=== PATIENT | male | born 1955 | race Caucasian/White ===

== ENCOUNTER 2018-04-18 12:45 | Emergency (ER) | payer OTHER ==
--- OUTSIDE RECORDS SUMMARY | 2018-04-18 13:37 | XMS REPORT ---
:1955 [facility] Address [address] [place] [address] [address] [place] [address] Care Team Providers Name Role Phone Unavailable Unavailable Unavailable Payers Payer Name Policy Type Policy Number Effective Date Expiration Date Problems This patient has no known problems. Allergies, Adverse Reactions, Alerts Allergy Allergy Status Severity Reaction(s) Onset Inactive Treating Comments Name Type Date Date Clinician No Known DA Active U 2018-02 Allergies -26 00:00:0 0 Medications This patient has no known medications.
[2018-04-18 14:52] LABS: Absolute Lymphocytes (CBC) 2.1 K/uL (0.7-4.9); Absolute Monocytes 0.6 K/uL (0.1-1.3); Absolute Neutrophil 3.2 K/uL (1.8-8.0); Basophils % 0.8 % (0-1.3); Eosinophils % 3.5 % (0-4.4); Lymphocytes % 33.9 % (15.3-44.8); MPV 8.1 fL (7.6-11.3); Monocytes % 9.5 % (3.3-12.3); RBC Red Blood Cell Count 5.01 M/uL (4.33-5.43)
[2018-04-18] MEDS ORDERED: NA CHLORIDE 0.9% 1,000 ML ONE (14:54)
[2018-04-18 15:02] LABS: ALT/SGPT 43 U/L (12-78); AST/SGOT 22 U/L (15-37); Albumin 4.1 g/dL (3.4-5.0); Alkaline Phosphatase 74 U/L (45-117); BUN Blood Urea Nitrogen 15 mg/dL (7-18); Bicarbonate 25 mmol/L (21-32); Bilirubin Direct < 0.1 mg/dL (0-0.2); Bilirubin Total 0.2 mg/dL (0.2-1.0); Glucose Level 91 mg/dL (74-106); Lipase 137 U/L (73-393); Potassium 4.3 mmol/L (3.5-5.1); Protein, Total 8.6 g/dL (6.4-8.2); Sodium Level 138 mmol/L (136-145)
[2018-04-18 15:12] LABS: Urine Blood NEGATIVE (NEG); Urine Glucose NEGATIVE (NEG); Urine Protein NEGATIVE (NEG); Urine Specific Gravity 1.025 (1.005-1.030); Urine pH 5.5 (5.0-7.0)
--- NOTE | 2018-04-18 16:29 | RAD REPORT ---
EXAM DESCRIPTION: CT - Abdomen Pelvis W Contrast - 04/18/2018 4:08 pm CLINICAL HISTORY: Abdominal pain, possible constipation, patient on pain medications for shoulder cardoso rgery COMPARISON: None. TECHNIQUE: Biphasic, helical CT imaging of the abdomen and pelvis was performed following 100 ml non -ionic IV contrast. Oral contrast was given. All CT scans are performed using dose optimization technique as appropriate and may include automated exposure control or mA/KV adjustment according to patient size. FINDINGS: No acute lung base finding. No pericardial thickening or effusion. No suspicious liver finding seen. Patient has several thin-walled homogeneous fluid attenuation cysts . Largest is 4 cm. No worrisome liver parenchymal finding. Spleen and pancreas show no suspicious fin dings. Gallbladder and biliary tree are also without suspicious finding. Gallstones can be occult on CT imaging. No suspicion for active gallbladder process. Symmetric renal function is seen with no hydronephrosis or suspicious renal mass. No pyelonephritis o r acute parenchymal process. Small cyst present in the anterior lower pole right kidney. No adrenal a bnormalities. Urinary bladder is mostly contracted. Prostate gland and seminal vesicles within normal limits. No gastric dilatation or wall thickening. No retention of the oral contrast which has reached the dis cb small bowel. No acute colon process. There is moderate stool volume in the colon but no colon dil atation, mass or acute colon process seen. There is no appendicitis. No free air, free fluid or inflammatory stranding. No mass or bulky lymphadenopathy. Patient has a very small umbilical hernia with no acute component. Disc and bony degenerative changes are present. No acute finding. IMPRESSION: Moderate stool volume throughout the colon. No obstruction or acute colon process. No suspicious or emergent finding. Nonacute findings detailed in the body of the report.
[2018-04-18] MEDS ORDERED: MAGNESIUM CITRATE 300 ML BOT ONE (17:11)
--- NOTE | 2018-04-18 17:55 | EDPHYS ---
Physician Documentation [facility] Name: Jonh Soto Age: 62 yrs Sex: Male : 1955 Arrival Date: 04/18/2018 Time: 12:49 Bed 7 Private MD: ED Physician Zay Zaldivar HPI: 04/18 14:42 This 62 yrs old Male presents to ER via Ambulatory with complaints of rn Abdominal Pain. 14:42 The patient presents with abdominal pain abdominal distention. Onset: The rn symptoms/episode began/occurred 3 week(s) ago. The symptoms do not radiate. Associated signs and symptoms: Pertinent positives: constipation, Pertinent negatives: blood in stools, fever, testicular pain. The symptoms are described as crampy. Modifying factors: The symptoms are alleviated by nothing, the symptoms are aggravated by nothing. Severity of pain: At its worst the pain was mild in the emergency department the pain is unchanged. The patient has experienced similar episodes in the past. Reports gets like this after anesthesia/surgery, reports had surgery 4 weeks ago on shoulder, has tried multiple bowel cleanses and not working, + passing gas. . Historical: - Allergies: 12:52 No Known Allergies; hj - Home Meds: 12:52 Effexor XR Oral [Active]; Lipitor Oral [Active]; Aspirin Oral [Active]; hj - PMHx: 12:52 Hypertension; hj - PSHx: 12:52 shoulder; hj - Immunization history:: Adult Immunizations up to date. - Social history:: Smoking status: Patient/guardian denies using tobacco, Patient/guardian denies using alcohol. - Ebola Screening: : Patient negative for fever greater than or equal to 101.5 degrees Fahrenheit, and additional compatible Ebola Virus Disease symptoms Patient denies exposure to infectious person Patient denies travel to an Ebola-affected area in the 21 days before illness onset. - Family history:: not pertinent. - Hospitalizations: : No recent hospitalization is reported. ROS: 14:42 Constitutional: Negative for fever, chills, and weight loss, Eyes: Negative for injury, rn pain, redness, and discharge, Cardiovascular: Negative for chest pain, palpitations, and edema, Respiratory: Negative for shortness of breath, cough, wheezing, and pleuritic chest pain, Abdomen/GI: + abd pain and distension, + constipation MS/Extremity: Negative for injury and deformity, Skin: Negative for injury, rash, and discoloration, Neuro: Negative for headache, weakness, numbness, tingling, and seizure. Exam: 14:42 Constitutional: This is a well developed, well nourished patient who is awake, alert, rn and in no acute distress. Head/Face: Normocephalic, atraumatic. ENT: MMM Cardiovascular: Regular rate and rhythm with a normal S1 and S2. No gallops, murmurs, or rubs. No JVD. No pulse deficits. Respiratory: Lungs have equal breath sounds bilaterally, clear to auscultation. No increased work of breathing, no retractions or nasal flaring. Abdomen/GI: soft, + mild abd distension, no focal tenderness MS/ Extremity: Pulses equal, no cyanosis. Neurovascular intact. Full, normal range of motion. Equal circumference. Neuro: Awake and alert, GCS 15, oriented to person, place, time, and situation. Cranial nerves II-XII grossly intact. Motor strength 5/5 in all extremities. Sensory grossly intact. Cerebellar exam normal. Normal gait. Vital Signs: 12:53 BP 136 / 100; Pulse 92; Resp 18; Temp 97.7(O); Pulse Ox 100% on R/A; Weight 99.79 kg; hj Height 5 ft. 8 in. (172.72 cm); Pain 7/10; 15:00 BP 138 / 100; Pulse 90; Resp 17; Pulse Ox 99% on R/A; hb 16:15 BP 140 / 98; Pulse 88; Resp 16; Pulse Ox 99% on R/A; hb 12:53 Body Mass Index 33.45 (99.79 kg, 172.72 cm) MDM: 13:50 Patient medically screened. rn 17:52 Differential diagnosis: bowel obstruction, non-specific abd pain, ileus, constipation. rn Data reviewed: vital signs, nurses notes, lab test result(s), radiologic studies, CT scan, and as a result, I will discharge patient. Counseling: I had a detailed discussion with the patient and/or guardian regarding: the historical points, exam findings, and any diagnostic results supporting the discharge/admit diagnosis, lab results, radiology results, the need for outpatient follow up, to return to the emergency department if symptoms worsen or persist or if there are any questions or concerns that arise at home. Special discussion: Based on the patient's Hx, exam, and Dx evaluation, there is no indication for emergent surgery or inpatient Tx. It is understood by the patient/guardian that if the Sx's persist or worsen they need to return immediately for re-evaluation. I discussed with the patient/guardian in detail that at this point there is no indication for admission to the hospital. It is understood, however, that if the symptoms persist or worsen the patient needs to return immediately for re-evaluation. ED course: Pt with constipation, no acute blockage or impaction on CT, able to pass some stool here, will dc home with continued bowel regimen and return precautions. . 04/18 14:22 Order name: Basic Metabolic Panel; Complete Time: 15:42 rn 04/18 14:22 Order name: CBC with Diff; Complete Time: 15:42 rn 04/18 14:22 Order name: Hepatic Function; Complete Time: 15:42 rn 04/18 14:22 Order name: Lipase; Complete Time: 15:42 rn 04/18 14:22 Order name: CT Abd/Pelvis - W/Contrast; Complete Time: 16:32 rn 04/18 14:57 Order name: Urine Dipstick--Ancillary (enter results); Complete Time: 15:42 bd 04/18 14:22 Order name: IV Saline Lock; Complete Time: 14:39 rn 04/18 14:22 Order name: Labs collected and sent; Complete Time: 14:39 rn Administered Medications: 14:44 Drug: NS 0.9% 1000 ml Route: IV; Rate: 1000 ml; Site: right antecubital; hb 17:00 Drug: Magnesium Citrate Liquid 300 ml Route: PO; sg Disposition: 04/18/18 17:54 Discharged to Home. Impression: Constipation, unspecified. - Condition is Stable. - Discharge Instructions: Constipation, Adult. - Medication Reconciliation Form, Thank You Letter, Antibiotic Education, Prescription Opioid Use form. - Follow up: Private Physician; When: As needed; Reason: Recheck today's complaints, Re-evaluation by your physician. - Problem is new. - Symptoms have improved. Signatures: Dispatcher [employer] EDChava Stearns RN RN sg Williams, Irene, RN RN iw Nieto, Roman, MD MD rn Joaquin, Henry, RN RN hj Baxter, Heather, RN RN Corrections: (The following items were deleted from the chart) 18:08 17:54 04/18/2018 17:54 Discharged to Home. Impression: Constipation, unspecified. iw Condition is Stable. Forms are Medication Reconciliation Form, Thank You Letter, Antibiotic Education, Prescription Opioid Use. Follow up: Private Physician; When: As needed; Reason: Recheck today's complaints, Re-evaluation by your physician. Problem is new. Symptoms have improved. rn
--- NOTE | 2018-04-18 17:55 | ER ---
Nurse's Notes [facility] Name: John Soto Age: 62 yrs Sex: Male : 1955 Arrival Date: 04/18/2018 Time: 12:49 Bed 7 Private MD: Diagnosis: Constipation, unspecified Presentation: 04/18 12:49 Presenting complaint: Patient states: S/P shoulder surgery a month ago, and every time hj i am taking pain meds , i feel like i have blockage on my GI; last BM this am, small stool; been taking dura lax and been doing enema with making little relief;. Transition of care: patient was not received from another setting of care. Onset of symptoms was April 18, 2018. Risk Assessment: Do you want to hurt yourself or someone else? Patient reports no desire to harm self or others. Initial Sepsis Screen: Does the patient meet any 2 criteria? No. Patient's initial sepsis screen is negative. Does the patient have a suspected source of infection? No. Patient's initial sepsis screen is negative. Care prior to arrival: None. 12:49 Method Of Arrival: Ambulatory 12:49 Acuity: KAVON 3 hj Triage Assessment: 12:52 General: Appears in no apparent distress. uncomfortable, Behavior is calm, cooperative, hj appropriate for age. Pain: Complains of pain in abdomen Pain currently is 7 out of 10 on a pain scale. Historical: - Allergies: 12:52 No Known Allergies; hj - Home Meds: 12:52 Effexor XR Oral [Active]; Lipitor Oral [Active]; Aspirin Oral [Active]; hj - PMHx: 12:52 Hypertension; hj - PSHx: 12:52 shoulder; hj - Immunization history:: Adult Immunizations up to date. - Social history:: Smoking status: Patient/guardian denies using tobacco, Patient/guardian denies using alcohol. - Ebola Screening: : Patient negative for fever greater than or equal to 101.5 degrees Fahrenheit, and additional compatible Ebola Virus Disease symptoms Patient denies exposure to infectious person Patient denies travel to an Ebola-affected area in the 21 days before illness onset. - Family history:: not pertinent. - Hospitalizations: : No recent hospitalization is reported. Screenin:53 Abuse screen: Denies threats or abuse. Denies injuries from another. Nutritional hj screening: No deficits noted. Tuberculosis screening: No symptoms or risk factors identified. Fall Risk None identified. Assessment: 14:15 General: Appears in no apparent distress. Behavior is calm, cooperative. Pain: Pain hb currently is 7 out of 10 on a pain scale. Neuro: Level of Consciousness is awake, alert, obeys commands, Oriented to person, place, time, situation. Cardiovascular: Heart tones S1 S2 present Capillary refill < 3 seconds Patient's skin is warm and dry. Respiratory: Airway is patent Trachea midline Respiratory effort is even, unlabored, Respiratory pattern is regular, symmetrical, Breath sounds are clear bilaterally. GI: Abdomen is round Bowel sounds present X 4 quads. Abd is soft and non tender X 4 quads. : No signs and/or symptoms were reported regarding the genitourinary system. EENT: No signs and/or symptoms were reported regarding the EENT system. Derm: Skin is intact, is healthy with good turgor, Skin is pink, warm \T\ dry. Musculoskeletal: No signs and/or symptoms reported regarding the musculoskeletal system. 15:00 Reassessment: Patient appears in no apparent distress at this time. No changes from previously documented assessment. Patient and/or family updated on plan of care and expected duration. Pain level reassessed. Patient is alert, oriented x 3, equal unlabored respirations, skin warm/dry/pink. 16:00 Reassessment: Patient appears in no apparent distress at this time. Patient and/or hb family updated on plan of care and expected duration. Pain level reassessed. Patient is alert, oriented x 3, equal unlabored respirations, skin warm/dry/pink. Vital Signs: 12:53 BP 136 / 100; Pulse 92; Resp 18; Temp 97.7(O); Pulse Ox 100% on R/A; Weight 99.79 kg; hj Height 5 ft. 8 in. (172.72 cm); Pain 7/10; 15:00 BP 138 / 100; Pulse 90; Resp 17; Pulse Ox 99% on R/A; hb 16:15 BP 140 / 98; Pulse 88; Resp 16; Pulse Ox 99% on R/A; hb 12:53 Body Mass Index 33.45 (99.79 kg, 172.72 cm) ED Course: 12:49 Patient arrived in ED. 12:51 Triage completed. hj 12:53 Arm band placed on right wrist. hj 12:53 Patient has correct armband on for positive identification. Placed in gown. Bed in low hj position. Call light in reach. Side rails up X 1. 13:50 Zay Zaldivar MD is Attending Physician. rn 14:11 Urine collected: clean catch specimen, clear, gelacio colored. jb1 14:42 Initial lab(s) drawn, by me, sent to lab. Inserted saline lock: 22 gauge in right jb1 antecubital area, using aseptic technique. Blood collected. 14:44 Chava Philip, RN is Primary Nurse. sg 16:07 CT Abd/Pelvis - W/Contrast In Process Unspecified. EDMS 16:07 CT completed. Patient tolerated procedure well. Patient moved to CT. Patient moved back sc from CT. 18:00 No provider procedures requiring assistance completed. IV discontinued, intact, sg bleeding controlled, No redness/swelling at site. Pressure dressing applied. Administered Medications: 14:44 Drug: NS 0.9% 1000 ml Route: IV; Rate: 1000 ml; Site: right antecubital; hb 17:00 Drug: Magnesium Citrate Liquid 300 ml Route: PO; sg Outcome: 17:54 Discharge ordered by MD. rn 18:00 Discharged to home ambulatory, with family. sg 18:00 Condition: good 18:00 Discharge instructions given to patient, Instructed on discharge instructions, follow up and referral plans. safety practices, Demonstrated understanding of instructions, follow-up care, medications, Prescriptions given X 0 18:08 Patient left the ED. Signatures: Dispatcher [employer] EDMS [facility] Chava Philip RN RN Patricia Carney RN RN Zay Zaldivar MD MD rn Joaquin, Henry, RN RN Olivia Gramajo RN RN Chucho Serrato Corrections: (The following items were deleted from the chart) 12:54 12:53 Pulse 92bpm; Resp 18bpm; Pulse Ox 100% RA; Temp 97.7F Oral; 99.79 kg; Height 5 hj ft. 8 in.; BMI: 33.4; Pain 7/10; hj 12:55 12:53 Pulse 92bpm; Resp 18bpm; Pulse Ox 100% RA; Temp 97.7F Oral; 99.79 kg; Height 5 hj ft. 8 in.; BMI: 33.4; Pain 7/10; hj
== END 2018-04-18 18:08 | disposition home or self-care (01) ==
LOC: ER 12:45
DX: K59.00 Constipation, unspecified (principal); I10 Essential (primary) hypertension; Z79.82 Long term (current) use of aspirin
CPT/HCPCS: 36415; 74177; 80048; 80076; 81003; 83690; 85025; 99284; J7030; Q9967

== ENCOUNTER 2019-04-22 16:58 | Emergency (ER) | payer OTHER ==
--- OUTSIDE RECORDS SUMMARY | 2019-04-22 17:00 | XMS REPORT ---
:1955 [facility] Address [address] [place] [address] Care Team Providers Name Role Phone Unavailable [...]
[2019-04-22] MEDS ORDERED: ONDANSETRON 4 MG/2 ML VIAL ONE (18:07)
[2019-04-22] MEDS ORDERED: DICYCLOMINE HCL 10 MG CAP ONE ×2 (18:07→20:33)
[2019-04-22] MEDS ORDERED: NA CHLORIDE 0.9% 1,000 ML ONE (18:08)
[2019-04-22] MEDS ORDERED: FAMOTIDINE 20 MG/2 ML VIAL IV ONE (18:08)
[2019-04-22 18:11] LABS: Absolute Lymphocytes (CBC) 1.5 K/uL (0.7-4.9); Basophils % 0.6 % (0-1.3); Hematocrit 48.6 % (39.6-49.0); Lymphocytes % 23.1 % (15.3-44.8); MPV 8.5 fL (7.6-11.3); RBC Red Blood Cell Count 5.42 M/uL (4.33-5.43)
[2019-04-22 18:27] LABS: ALT/SGPT 51 U/L (12-78); AST/SGOT 26 U/L (15-37); Alkaline Phosphatase 71 U/L (45-117); BUN Blood Urea Nitrogen 14 mg/dL (7-18); Bicarbonate 26 mmol/L (21-32); Bilirubin Direct < 0.1 mg/dL (0-0.2); Bilirubin Total 0.3 mg/dL (0.2-1.0); Glucose Level 92 mg/dL (74-106); Lipase 139 U/L (73-393); Potassium 3.8 mmol/L (3.5-5.1); Protein, Total 8.5 g/dL (6.4-8.2); Sodium Level 139 mmol/L (136-145)
[2019-04-22 18:33] LABS: Urine Bacteria NONE SEEN /HPF (NONE SEEN); Urine Culture Reflex Order NOT NEEDED; Urine Mucus 1+ /HPF (NONE SEEN); Urine RBC NONE SEEN /HPF (NONE SEEN)
[2019-04-22 19:40] LABS: Urine Blood TRACE (NEG); Urine Glucose NEGATIVE (NEG); Urine Protein NEGATIVE (NEG); Urine Specific Gravity >1.030 (1.005-1.030); Urine pH 5.5 (5.0-7.0)
--- NOTE | 2019-04-22 19:57 | RAD REPORT ---
EXAM DESCRIPTION: CT - Abdomen Pelvis W Contrast - 04/22/2019 7:35 pm CLINICAL HISTORY: ABDOMINAL DISTENTIONabdominal pain COMPARISON: Abdomen Pelvis W Contrast dated 04/18/2018 TECHNIQUE: Biphasic, helical CT imaging of the abdomen and pelvis was performed following 100 ml non -ionic IV contrast. No oral contrast administered. All CT scans are performed using dose optimization technique as appropriate and may include automated exposure control or mA/KV adjustment according to patient size. FINDINGS: No suspicious findings in the lung bases. Mild diffuse fatty infiltration pattern is present in the liver. Several round thin-walled homogeneou s fluid attenuation masses are present in the liver. Largest is in the central right lobe a 4 cm. No suspicious liver finding. Spleen and pancreas show no suspicious findings. Gallbladder and biliary tr ee are also without suspicious finding. Symmetric renal function is seen with no hydronephrosis or suspicious renal mass. No pyelonephritis o r acute parenchymal process. No bladder abnormalities. No adrenal abnormalities. No dilated bowel loops or bowel wall thickening. Minimal sigmoid diverticulosis. No free air, free f luid or inflammatory stranding. No mass or bulky lymphadenopathy. A small fat only umbilical hernia is present. No suspicious bony findings. IMPRESSION: Contrast enhanced CT abdomen and pelvis showing no acute finding. Above detailed findings show no significant change from March 2018.
--- NOTE | 2019-04-22 20:26 | EDPHYS ---
Physician Documentation [facility] Name: John Soto Age: 63 yrs Sex: Male : 1955 Arrival Date: 04/22/2019 Time: 17:00 Bed 17 Private MD: ED Physician Havrey Story HPI: 04/22 17:40 This 63 yrs old Male presents to ER via Ambulatory with complaints of cp Abdominal Pain, Abdominal Swelling, Constipation. 17:40 The patient presents with abdominal pain that is diffuse, abdominal distention that is cp diffuse. 17:40 Onset: The symptoms/episode began/occurred 5 day(s) ago. cp 17:40 The symptoms do not radiate. Associated signs and symptoms: Pertinent positives: cp nausea, Pertinent negatives: anorexia, blood in stools, chest pain, dysuria, fever, hematuria, shortness of breath, testicular pain, vomiting. The symptoms are described as bloating. Patient reports having constipation for past several days so he took otc Magnesium Citrate, approximately 4-5 bottles yesterday. Patient reports multiple loose bowel movements since yesterday. Historical: - Home Meds: 17:12 Lipitor Oral [Active]; Effexor XR Oral [Active]; Aspirin Oral [Active]; jl7 - PMHx: 17:12 Hypertension; Anxiety; jl7 - PSHx: 17:12 shoulder; jl7 - Immunization history:: Adult Immunizations up to date. - Social history:: Smoking status: Patient/guardian denies using tobacco. - Ebola Screening: : No symptoms or risks identified at this time. ROS: 17:50 Constitutional: Negative for body aches, chills, fever, poor PO intake. cp 17:50 Eyes: Negative for injury, pain, redness, and discharge. cp 17:50 ENT: Negative for drainage from ear(s), ear pain, sore throat, difficulty swallowing, difficulty handling secretions. 17:50 Cardiovascular: Negative for chest pain, edema, palpitations. 17:50 Respiratory: Negative for cough, shortness of breath, wheezing. 17:50 Abdomen/GI: Positive for abdominal pain, nausea, Negative for vomiting, diarrhea, constipation, anorexia, black/tarry stool, rectal bleeding. 17:50 Back: Negative for pain at rest, pain with movement, radiated pain. 17:50 : Negative for urinary symptoms, testicular pain 17:50 Skin: Negative for rash. 17:50 All other systems are negative. Exam: 17:55 Constitutional: The patient appears in no acute distress, alert, awake, cp non-diaphoretic, non-toxic, well developed, well nourished, obese. 17:55 Head/Face: Normocephalic, atraumatic. cp 17:55 Eyes: Periorbital structures: appear normal, Conjunctiva: normal, no exudate, no injection, Sclera: no appreciated abnormality, Lids and lashes: appear normal, bilaterally. 17:55 ENT: External ear(s): are unremarkable, Nose: is normal, Mouth: Lips: moist, Oral mucosa: pink and intact, moist, Posterior pharynx: is normal, airway is patent, no erythema, no exudate. 17:55 Chest/axilla: Inspection: normal, Palpation: is normal, no crepitus, no tenderness. 17:55 Cardiovascular: Rate: normal, Rhythm: regular, Edema: is not appreciated, JVD: is not appreciated. 17:55 Respiratory: the patient does not display signs of respiratory distress, Respirations: normal, no use of accessory muscles, no retractions, labored breathing, is not present, Breath sounds: are clear throughout, no decreased breath sounds, no stridor, no wheezing. 17:55 Abdomen/GI: Inspection: distension, that is mild, obese Bowel sounds: active, all quadrants, Palpation: soft, in all quadrants, mild abdominal tenderness, rebound tenderness, is not appreciated, voluntary guarding, is not appreciated, involuntary guarding, is not appreciated. 17:55 Back: pain, is absent, ROM is normal. Vital Signs: 17:12 BP 126 / 75; Pulse 98; Resp 16 S; Temp 98.3(O); Pulse Ox 99% on R/A; Weight 105.23 kg jl7 (R); Height 5 ft. 7 in. (170.18 cm) (R); Pain 5/10; 18:35 BP 141 / 100; Pulse 74; Resp 16; Temp 98.7(O); Pulse Ox 97% on R/A; mh5 17:12 Body Mass Index 36.34 (105.23 kg, 170.18 cm) jl7 MDM: 17:17 Patient medically screened. ruben 18:00 Differential diagnosis: bowel obstruction, cholecystitis, Cholelithiasis, cp diverticulitis, gastritis, non-specific abd pain, pancreatitis. 20:25 Data reviewed: vital signs, nurses notes, lab test result(s), radiologic studies, CT cp scan. 20:25 Counseling: I had a detailed discussion with the patient and/or guardian regarding: the cp historical points, exam findings, and any diagnostic results supporting the discharge/admit diagnosis, lab results, radiology results, to return to the emergency department if symptoms worsen or persist or if there are any questions or concerns that arise at home. Response to treatment: the patient's symptoms have markedly improved after treatment, and as a result, I will discharge patient. Special discussion: Based on the patient's Hx, exam, and Dx evaluation, there is no indication for emergent surgery or inpatient Tx. It is understood by the patient/guardian that if the Sx's persist or worsen they need to return immediately for re-evaluation. ED course: VSS. Symptoms improved with meds. CT abdomen negative for acute findings. Will discharge to home for continued monitoring. 04/22 17:33 Order name: Basic Metabolic Panel; Complete Time: 18:40 cp 04/22 18:40 Interpretation: Normal except: GFR 78. cp 04/22 17:33 Order name: CBC with Diff; Complete Time: 18:40 cp 04/22 17:33 Order name: Creatinine for Radiology; Complete Time: 18:40 cp 04/22 17:33 Order name: Hepatic Function; Complete Time: 18:40 cp 04/22 17:33 Order name: Lipase; Complete Time: 18:40 cp 04/22 17:33 Order name: Urine Microscopic Only; Complete Time: 18:40 cp 04/22 17:33 Order name: CT Abd/Pelvis - IV Contrast Only; Complete Time: 20:01 cp 04/22 18:07 Order name: Urine Dipstick--Ancillary (enter results); Complete Time: 20:01 ms 04/22 20:01 Interpretation: Normal except: USPGR >1.030; UBLD TRACE. cp 04/22 17:33 Order name: IV Saline Lock; Complete Time: 18:56 cp 04/22 17:33 Order name: Labs collected and sent; Complete Time: 18:57 cp 04/22 17:33 Order name: Urine Dipstick-Ancillary (obtain specimen); Complete Time: 18:07 cp 04/22 20:02 Order name: PO challenge; Complete Time: 21:01 cp Administered Medications: 18:35 Drug: NS 0.9% 1000 ml Route: IV; Rate: 1000 ml/hr; Site: right antecubital; ph 18:35 Drug: Zofran 4 mg Route: IVP; Site: right antecubital; ph 19:06 Follow up: Response: No adverse reaction ph 18:35 Drug: Pepcid 20 mg Route: IVP; Site: right antecubital; ph 19:06 Follow up: Response: No adverse reaction ph 18:40 Drug: Bentyl 20 mg Route: PO; ph 19:06 Follow up: Response: No adverse reaction ph 20:13 CANCELLED (Physician Discretion): Benadryl 12.5 mg IVP once cp 21:00 Drug: Reglan 10 mg Route: IVP; Site: right antecubital; iw 21:01 Drug: Bentyl 20 mg Route: PO; iw Disposition: 04/22/19 20:25 Discharged to Home. Impression: Unspecified abdominal pain. - Condition is Stable. - Discharge Instructions: Abdominal Pain, Adult. - Prescriptions for Bentyl 20 mg Oral Tablet - take 1 tablet by ORAL route every 6 hours As needed; 30 tablet. Reglan 10 mg Oral Tablet - take 1 tablet by ORAL route every 6 hours take 30 minutes before meals and at bedtime; 20 tablet. - Medication Reconciliation Form, Thank You Letter, Antibiotic Education, Prescription Opioid Use form. - Follow up: Eusebio Reynoso MD; When: 2 - 3 days; Reason: Recheck today's complaints. - Problem is new. - Symptoms have improved. Addendum: 04/24/2019 09:32 Co-signature as Attending Physician, Harvey Story MD I agree with the assessment and c singh plan of care. Signatures: Dispatcher [employer] Harvey Oleary MD MD cha Williams, Irene, RN RN iw Mulu Siddiqui RN RN Harvey Gooden PA PA cp Anthony Lara RN RN jl7 Corrections: (The following items were deleted from the chart) 04/22 20:13 20:11 Benadryl 12.5 mg IVP once ordered. cp cp 21:17 20:25 04/22/2019 20:25 Discharged to Home. Impression: Unspecified abdominal pain. iw Condition is Stable. Discharge Instructions: Abdominal Pain, Adult. Prescriptions for Bentyl 20 mg Oral Tablet - take 1 tablet by ORAL route every 6 hours As needed; 30 tablet, Reglan 10 mg Oral Tablet - take 1 tablet by ORAL route every 6 hours take 30 minutes before meals and at bedtime; 20 tablet. and Forms are Medication Reconciliation Form, Thank You Letter, Antibiotic Education, Prescription Opioid Use. Follow up: Eusebio Reynoso; When: 2 - 3 days; Reason: Recheck today's complaints. Problem is new. Symptoms have improved. cp
--- NOTE | 2019-04-22 20:26 | ER ---
Nurse's Notes [facility] Name: John Soto Age: 63 yrs Sex: Male : 1955 Arrival Date: 04/22/2019 Time: 17:00 Bed 17 Private MD: Diagnosis: Unspecified abdominal pain Presentation: 04/22 17:10 Presenting complaint: Patient states: Nausea, bloating and constipation x 5 days, took jl7 laxative last night and emptied out but today is still feeling bloated and nausea. Transition of care: patient was not received from another setting of care. Onset of symptoms was April 18, 2019. Risk Assessment: Do you want to hurt yourself or someone else? Patient reports no desire to harm self or others. Initial Sepsis Screen: Does the patient meet any 2 criteria? No. Patient's initial sepsis screen is negative. Does the patient have a suspected source of infection? No. Patient's initial sepsis screen is negative. Care prior to arrival: None. 17:10 Method Of Arrival: Ambulatory [facility] 17:10 Acuity: KAVON 3 jl7 Triage Assessment: 17:12 General: Appears in no apparent distress. uncomfortable, Behavior is calm, cooperative, jl7 appropriate for age. Pain: Complains of pain in right upper quadrant Pain currently is 5 out of 10 on a pain scale. Is continuous. Neuro: Level of Consciousness is awake, alert, obeys commands, Oriented to person, place, time, situation. GI: Abdomen is round non-distended, Reports bloating. Historical: - Home Meds: 17:12 Lipitor Oral [Active]; Effexor XR Oral [Active]; Aspirin Oral [Active]; jl7 - PMHx: 17:12 Hypertension; Anxiety; jl7 - PSHx: 17:12 shoulder; jl7 - Immunization history:: Adult Immunizations up to date. - Social history:: Smoking status: Patient/guardian denies using tobacco. - Ebola Screening: : No symptoms or risks identified at this time. Screenin:46 Abuse screen: Denies threats or abuse. Denies injuries from another. Nutritional ph screening: No deficits noted. Tuberculosis screening: No symptoms or risk factors identified. Fall Risk None identified. Assessment: 17:45 General: Appears in no apparent distress. comfortable, well groomed, Behavior is calm, ph cooperative, appropriate for age, Denies fever, feeling ill. Pain: Complains of pain in abdomen diffusely. Neuro: Level of Consciousness is awake, alert, obeys commands, Oriented to person, place, time, situation. Cardiovascular: Capillary refill < 3 seconds in bilateral fingers Patient's skin is warm and dry. Respiratory: Airway is patent Respiratory effort is even, unlabored, Respiratory pattern is regular, symmetrical. GI: Abdomen is round Bowel sounds present X 4 quads. Reports lower abdominal pain, upper abdominal pain, bloating, gaseousness. Derm: Skin is intact, is healthy with good turgor, Skin is pink, warm \T\ dry. Musculoskeletal: Circulation, motion, and sensation intact. Range of motion: intact in all extremities. 18:45 Reassessment: Patient appears in no apparent distress at this time. Patient and/or ph family updated on plan of care and expected duration. Pain level reassessed. Patient is alert, oriented x 3, equal unlabored respirations, skin warm/dry/pink. 19:00 GI: Abd is soft and non tender. iw Vital Signs: 17:12 BP 126 / 75; Pulse 98; Resp 16 S; Temp 98.3(O); Pulse Ox 99% on R/A; Weight 105.23 kg jl7 (R); Height 5 ft. 7 in. (170.18 cm) (R); Pain 5/10; 18:35 BP 141 / 100; Pulse 74; Resp 16; Temp 98.7(O); Pulse Ox 97% on R/A; mh5 17:12 Body Mass Index 36.34 (105.23 kg, 170.18 cm) jl7 ED Course: 17:00 Patient arrived in ED. rg4 17:12 Triage completed. jl7 17:12 Arm band placed on right wrist. jl7 17:15 Harvey Muro PA is PHCP. cp 17:15 Harvey Story MD is Attending Physician. cp 17:46 Mulu Siddiqui, MAHI is Primary Nurse. ph 18:05 Inserted saline lock: 20 gauge in right antecubital area, using aseptic technique. ph Blood collected. 18:06 Patient has correct armband on for positive identification. Bed in low position. Call [facility] light in reach. Side rails up X 1. Adult w/ patient. Pulse ox on. NIBP on. 18:06 Urine collected: clean catch specimen, cloudy. mh5 18:07 Urine Microscopic Only Sent. mh5 19:35 CT Abd/Pelvis - IV Contrast Only In Process Unspecified. EDMS 20:24 Eusebio Reynoso MD is Referral Physician. cp 21:15 No provider procedures requiring assistance completed. IV discontinued, intact, iw bleeding controlled, No redness/swelling at site. Pressure dressing applied. Administered Medications: 18:35 Drug: NS 0.9% 1000 ml Route: IV; Rate: 1000 ml/hr; Site: right antecubital; ph 18:35 Drug: Zofran 4 mg Route: IVP; Site: right antecubital; ph 19:06 Follow up: Response: No adverse reaction ph 18:35 Drug: Pepcid 20 mg Route: IVP; Site: right antecubital; ph 19:06 Follow up: Response: No adverse reaction ph 18:40 Drug: Bentyl 20 mg Route: PO; ph 19:06 Follow up: Response: No adverse reaction ph 20:13 CANCELLED (Physician Discretion): Benadryl 12.5 mg IVP once cp 21:00 Drug: Reglan 10 mg Route: IVP; Site: right antecubital; iw 21:01 Drug: Bentyl 20 mg Route: PO; iw Outcome: 20:25 Discharge ordered by MD. cp 21:15 Discharged to home ambulatory, with family. iw 21:15 Condition: good 21:15 Discharge instructions given to patient, family, Instructed on discharge instructions, follow up and referral plans. medication usage, Demonstrated understanding of instructions, follow-up care, medications, Prescriptions given X 2. 21:17 Patient left the ED. iw Signatures: Dispatcher [employer] Patricia Fritz RN RN iw Mulu Siddiqui RN RN ph Harvey Muro PA PA Ana Luisa Verduzco4 Melissa Morillo Anthony Weiss, RN RN jl7
[2019-04-22] MEDS ORDERED: METOCLOPRAMIDE 10 MG/2mL INJ ONE (20:33)
[2019-04-22 21:25] VITALS: BP 141/100; TEMP 98.7; O2SAT 97
== END 2019-04-22 21:17 | disposition home or self-care (01) ==
LOC: ER 16:58
DX: R10.9 Unspecified abdominal pain (principal); I10 Essential (primary) hypertension; F41.9 Anxiety disorder, unspecified; Z79.82 Long term (current) use of aspirin
CPT/HCPCS: 85025; 80048; 36415; 80076; 83690; 74177; 96375; 96374; 99284; Q9967; J2765; J7030; J2405; 81003; 81015

== ENCOUNTER 2020-02-24 18:05 | Emergency (ER) | payer OTHER ==
--- OUTSIDE RECORDS SUMMARY | 2020-02-24 18:07 | XMS REPORT | Continuity of Care Document ---
:1955 Author Organization [facility] t Address [address] [place] [address] Care Team Providers Name Role Phone Unavailable Unavailable Unavailable Payers Payer Name Policy Type Policy Number Effective Date Expiration Date S ource Problems This patient has no known problems. Allergies, Adverse Reactions, Alerts Allergy Allergy Status Severity Reaction(s) Onset Inactive Treating Comm ents Source Name Type Date Date Clinician No Known DA Active U 2017-04 [facility] Allergie 05-14 [place] [facility] Medications This patient has no known medications. Procedures This patient has no known procedures. Results This patient has no known results.
[2020-02-24 19:20] LABS: Absolute Lymphocytes (CBC) 1.9 K/uL (0.7-4.9); Basophils % 0.5 % (0-1.3); Hematocrit 43.6 % (39.6-49.0); Lymphocytes % 28.1 % (15.3-44.8); MPV 8.8 fL (7.6-11.3); RBC Red Blood Cell Count 4.79 M/uL (4.33-5.43)
[2020-02-24 19:37] LABS: ALT/SGPT 42 U/L (12-78); AST/SGOT 19 U/L (15-37); Albumin 3.8 g/dL (3.4-5.0); Alkaline Phosphatase 62 U/L (45-117); BUN Blood Urea Nitrogen 16 mg/dL (7-18); Bicarbonate 25 mmol/L (21-32); Bilirubin Direct < 0.1 mg/dL (0-0.2); Bilirubin Total 0.2 mg/dL (0.2-1.0); Glucose Level 99 mg/dL (74-106); Lipase 98 U/L (73-393); Potassium 4.1 mmol/L (3.5-5.1); Protein, Total 7.8 g/dL (6.4-8.2); Sodium Level 141 mmol/L (136-145)
--- NOTE | 2020-02-24 20:42 | RAD REPORT ---
EXAM DESCRIPTION: CT - Abdomen Pelvis W Contrast - 02/24/2020 8:14 pm CLINICAL HISTORY: Abdominal pain COMPARISON: April 2019 TECHNIQUE: Computed axial tomography of the abdomen pelvis was obtained. 100 cc Isovue-300 was admin istered intravenously. Oral contrast was not requested which limits evaluation of bowel. All CT scans are performed using dose optimization technique as appropriate and may include automated exposure control or mA/KV adjustment according to patient size. FINDINGS: Multiple hepatic cysts. Largest measures 4.3 centimeters Spleen, pancreas, adrenal and left kidney appear unremarkable. Small right renal cysts There is no evidence of diverticulitis. Normal appendix Small umbilical hernia contains fat IMPRESSION: No acute abnormality is displayed.
--- NOTE | 2020-02-24 21:15 | EDPHYS ---
Physician Documentation [facility] Name: John Soto Age: 64 yrs Sex: Male : 1955 Arrival Date: 02/24/2020 Time: 18:08 Bed 8 Private MD: ED Physician Harvey Story HPI: 02/23 18:40 This 64 yrs old Male presents to ER via Ambulatory with complaints of jmm Abdominal Pain. 18:40 The patient presents with abdominal pain in the epigastric area. Onset: The jmm symptoms/episode began/occurred gradually. The symptoms do not radiate. Associated signs and symptoms: Pertinent positives:. The symptoms are described as achy, dull. Modifying factors: The symptoms are alleviated by remaining still, the symptoms are aggravated by movement. This is a 64 year old male with a history of chronic consstipation that presents to the ED with complaints of generalized abdominal pain beginning this past . Patient states he has not had a BM since. Denies vomiting. Pain radiates to the left groin and is worsened with standing. . Historical: - Allergies: 18:48 No Known Allergies; iw - Home Meds: 18:47 Linzess 290 mcg oral cap 1 cap once daily [Active]; senna oral oral once daily iw [Active]; losartan 100 mg oral tab once daily [Active]; - PMHx: 18:47 Hypertension; Anxiety; iw - PSHx: 18:47 shoulder; iw - Immunization history:: Adult Immunizations up to date. - Social history:: Smoking status: Patient denies any tobacco usage or history of. ROS: 18:40 Constitutional: Negative for fever, chills, and weight loss, Cardiovascular: Negative jmm for chest pain, palpitations, and edema, Respiratory: Negative for shortness of breath, cough, wheezing, and pleuritic chest pain. 18:40 Abdomen/GI: Positive for abdominal pain. 18:40 All other systems are negative. Exam: 18:40 Constitutional: This is a well developed, well nourished patient who is awake, alert, jmm and in no acute distress. Head/Face: atraumatic. Eyes: EOMI, no conjunctival erythema appreciated ENT: Moist Mucus Membranes Neck: Trachea midline, Supple Chest/axilla: Normal chest wall appearance and motion. Cardiovascular: Regular rate and rhythm. No edema appreciated Respiratory: Normal respirations, no respiratory distress appreciated Abdomen/GI: Non distended, soft Back: Normal ROM Skin: General appearance color normal MS/ Extremity: Moves all extremities, no obvious deformities appreciated, no edema noted to the lower extremities Neuro: Awake and alert, normal gait Psych: Behavior is normal, Mood is normal, Patient is cooperative and pleasant Vital Signs: 18:43 BP 132 / 76; Pulse 95; Resp 16; Temp 98.0; Pulse Ox 98% on R/A; iw 20:07 BP 124 / 80; Pulse 74; Resp 14; Pulse Ox 98% on R/A; rv 21:03 BP 127 / 77; Pulse 73; Resp 15; Pulse Ox 97% on R/A; rv MDM: 18:40 Patient medically screened. ruben 21:13 Data reviewed: vital signs, nurses notes. Counseling: I had a detailed discussion with [facility] the patient and/or guardian regarding: the historical points, exam findings, and any diagnostic results supporting the discharge/admit diagnosis, the need for outpatient follow up, to return to the emergency department if symptoms worsen or persist or if there are any questions or concerns that arise at home. 02/23 18:50 Order name: Basic Metabolic Panel; Complete Time: 20:13 [facility] 02/23 18:50 Order name: CBC with Diff; Complete Time: 20:13 [facility] 02/23 18:50 Order name: Hepatic Function; Complete Time: 20:13 [facility] 02/23 18:50 Order name: Lipase; Complete Time: 20:13 [facility] 02/23 18:50 Order name: CT Abd/Pelvis - IV Contrast Only; Complete Time: 20:44 [facility] 02/23 18:50 Order name: IV Saline Lock; Complete Time: 19:23 [facility] 02/23 18:50 Order name: Labs collected and sent; Complete Time: 19:24 [facility] Administered Medications: 21:10 Drug: Valium 5 mg Route: IVP; Site: right antecubital; rv 21:26 Follow up: Response: No adverse reaction; Pain is decreased rv Disposition: 02/24/20 21:14 Discharged to Home. Impression: Generalized abdominal pain. - Condition is Stable. - Discharge Instructions: Abdominal Pain, Adult. - Prescriptions for orphenadrine citrate 100 mg Oral Tablet Sustained Release - take 1 tablet by ORAL route 2 times per day As needed; 20 tablet. - Medication Reconciliation Form, Thank You Letter, Antibiotic Education, Prescription Opioid Use form. - Follow up: Private Physician; When: 2 - 3 days; Reason: Recheck today's complaints, Continuance of care, Re-evaluation by your physician. Addendum: 02/26/2020 08:50 Co-signature as Attending Physician, Harvey Story MD I agree with the assessment and c singh plan of care. Signatures: Dispatcher [employer] EDHarvey Osborne MD MD cha Mickail, Joel, PA PA jmm Williams, Irene, RN RN iw Luan Peoples RN RN rv Corrections: (The following items were deleted from the chart) 02/23 21:27 21:14 02/24/2020 21:14 Discharged to Home. Impression: Generalized abdominal pain. rv Condition is Stable. Forms are Medication Reconciliation Form, Thank You Letter, Antibiotic Education, Prescription Opioid Use. Follow up: Private Physician; When: 2 - 3 days; Reason: Recheck today's complaints, Continuance of care, Re-evaluation by your physician. jessi
--- NOTE | 2020-02-24 21:15 | ER ---
Nurse's Notes [facility] Name: John Soto Age: 64 yrs Sex: Male : 1955 Arrival Date: 02/24/2020 Time: 18:08 Bed 8 Private MD: Diagnosis: Generalized abdominal pain Presentation: 02/23 18:43 Chief complaint: Patient states: mid abd pain started , has hx of GI problems, iw was told he has a slow digestive system and possibly IBS, has been on Linzess and senna stool softener. Coronavirus screen: At this time, the client does not indicate any symptoms associated with coronavirus-19. Ebola Screen: Patient negative for fever greater than or equal to 101.5 degrees Fahrenheit, and additional compatible Ebola Virus Disease symptoms Patient denies exposure to infectious person. Patient denies travel to an Ebola-affected area in the 21 days before illness onset. No symptoms or risks identified at this time. Initial Sepsis Screen: Does the patient meet any 2 criteria? No. Patient's initial sepsis screen is negative. Does the patient have a suspected source of infection? No. Patient's initial sepsis screen is negative. Risk Assessment: Do you want to hurt yourself or someone else? Patient reports no desire to harm self or others. Onset of symptoms was February 22, 2020. 18:43 Method Of Arrival: Ambulatory iw 18:43 Acuity: KAVON 3 iw Historical: - Allergies: 18:48 No Known Allergies; iw - Home Meds: 18:47 Linzess 290 mcg oral cap 1 cap once daily [Active]; senna oral oral once daily iw [Active]; losartan 100 mg oral tab once daily [Active]; - PMHx: 18:47 Hypertension; Anxiety; iw - PSHx: 18:47 shoulder; iw - Immunization history:: Adult Immunizations up to date. - Social history:: Smoking status: Patient denies any tobacco usage or history of. Screenin:54 Abuse screen: Denies threats or abuse. Nutritional screening: No deficits noted. em Tuberculosis screening: No symptoms or risk factors identified. Fall Risk None identified. Assessment: 19:24 General: Appears comfortable, Behavior is calm, cooperative. Pain: Complains of pain in rv right upper quadrant and left upper quadrant. Neuro: Level of Consciousness is awake, alert, obeys commands, Oriented to person, place, time, situation. Cardiovascular: Patient's skin is warm and dry. Respiratory: Airway is patent Respiratory effort is even, unlabored. GI: Bowel sounds present X 4 quads. Abd is soft and non tender X 4 quads. Derm: Skin is intact. 20:08 Reassessment: patient taken to CT scan. rv 20:22 Reassessment: PATIENT IS BACK FROM CT SCAN. AWAITING RESULT. rv 20:24 Reassessment: PATIENT AND FAMILY UPDATED ON THE BLOOD TEST RESULTS, AND WAITING TIME rv FOR CT SCAN RESULT. PATIENT IS COMFORTABLE LAYING ON HIS BACK ON THE BED. DENIES ANY PAIN AT THIS MOMENT. Vital Signs: 18:43 BP 132 / 76; Pulse 95; Resp 16; Temp 98.0; Pulse Ox 98% on R/A; iw 20:07 BP 124 / 80; Pulse 74; Resp 14; Pulse Ox 98% on R/A; rv 21:03 BP 127 / 77; Pulse 73; Resp 15; Pulse Ox 97% on R/A; rv ED Course: 18:08 Patient arrived in ED. mr 18:35 Celso Clements, ULYSSES is PHCP. jmm 18:35 Harvey Story MD is Attending Physician. jmm 18:46 Triage completed. iw 18:46 Arm band placed on. iw 18:54 Melchor Moya, RN is Primary Nurse. em 18:54 Patient has correct armband on for positive identification. Bed in low position. Call em light in reach. 19:07 Inserted saline lock: 20 gauge in right antecubital area, using aseptic technique. rv Blood collected. 19:07 Initial lab(s) drawn, by nv, sent to lab. rv 20:14 CT Abd/Pelvis - IV Contrast Only In Process Unspecified. EDMS 21:27 No provider procedures requiring assistance completed. IV discontinued, intact, rv bleeding controlled, No redness/swelling at site. Pressure dressing applied. Administered Medications: 21:10 Drug: Valium 5 mg Route: IVP; Site: right antecubital; rv 21:26 Follow up: Response: No adverse reaction; Pain is decreased rv Outcome: 21:14 Discharge ordered by . jmm 21:27 Discharged to home ambulatory, with family. rv 21:27 Condition: improved 21:27 Discharge instructions given to patient, family, Instructed on discharge instructions, follow up and referral plans. medication usage, Demonstrated understanding of instructions, follow-up care, medications, Prescriptions given X 1. 21:27 Patient left the ED. rv Signatures: Dispatcher [employer] Celso Whyte PA PA jmm Rivera, Mary mr MunozMelchor, RN RN Patricia Oleary RN RN iw Vicente, Ronaldo, RN RN rv
[2020-02-24] MEDS ORDERED: DIAZEPAM 10 MG/2 ML INJ SYRINGE ONE (21:20)
[2020-02-24 21:43] VITALS: TEMP 98
[2020-02-24 21:47] VITALS: BP 127/77; O2SAT 97
== END 2020-02-24 21:27 | disposition home or self-care (01) ==
LOC: ER 18:05
DX: R10.84 Generalized abdominal pain (principal); I10 Essential (primary) hypertension; F41.9 Anxiety disorder, unspecified
CPT/HCPCS: 85025; 80048; 36415; 80076; 83690; 74177; 96374; 99284; Q9967; J3360